=== PATIENT | female | born 1985 | race Caucasian/White ===

== ENCOUNTER 2016-11-12 14:43 | Emergency (ER) | payer OTHER ==
[~2016-11-12] VITALS: Ht 162.6 cm; Wt 81.6 kg
[2016-11-12 17:04] VITALS: BP 113/71
== END 2016-11-12 17:52 | disposition home or self-care (01) ==
LOC: ED 14:43
DX: S70.12XA Contusion of left thigh, initial encounter (principal); M54.9 Dorsalgia, unspecified; E66.9 Obesity, unspecified; M79.7 Fibromyalgia; M19.90 Unspecified osteoarthritis, unspecified site; Z79.1 Long term (current) use of non-steroidal anti-inflammatories (NSAID); Z79.899 Other long term (current) drug therapy; W01.10XA Fall on same level from slipping, tripping and stumbling with subsequent striking against unspecified object, initial encounter; Y93.89 Activity, other specified; Y92.89 Other specified places as the place of occurrence of the external cause; Y99.8 Other external cause status
CPT/HCPCS: J2270; Q0162

== ENCOUNTER 2018-12-05 08:49 | Emergency (ER) | payer OTHER ==
[~2018-12-05] VITALS: Ht 162.6 cm; Wt 88.0 kg
[2018-12-05 08:52] VITALS: Ht 162.6 cm; Wt 88.0 kg
[2018-12-05 10:05] VITALS: BP 115/68
== END 2018-12-05 10:52 | disposition home or self-care (01) ==
LOC: ED 08:49
DX: O20.9 Hemorrhage in early pregnancy, unspecified (principal); Z3A.01 Less than 8 weeks gestation of pregnancy
CPT/HCPCS: 36415

== ENCOUNTER 2018-12-07 13:47 | Emergency (ER) | payer OTHER ==
[~2018-12-07] VITALS: Ht 162.6 cm; Wt 88.0 kg
[2018-12-07 14:05] VITALS: Ht 162.6 cm; Wt 88.0 kg
[2018-12-07 15:53] VITALS: BP 125/62
== END 2018-12-07 15:53 | disposition home or self-care (01) ==
LOC: ED 13:47
DX: O20.0 Threatened abortion (principal)
CPT/HCPCS: 36415

== ENCOUNTER 2019-01-03 16:32 | Emergency (ER) | payer OTHER ==
[~2019-01-03] VITALS: Ht 162.6 cm; Wt 87.5 kg
[2019-01-03 16:36] VITALS: Ht 162.6 cm; Wt 87.5 kg
[2019-01-03 17:19] LABS: BASOPHIL % 0.6 % (0-2); PLATELET COUNT 364 x10^3mcL (130-400)
[2019-01-03 17:33] LABS: UA SPECIFIC GRAVITY 1.025 (1.005-1.035); microscopic required? YES; urine erythrocyte 3+ (NEGATIVE)
[2019-01-03 17:55] LABS: RED CELL DISTRIBUTION WIDTH 24.8 % (11.5-14.5)
[2019-01-03 18:06] LABS: rbc morphology (normal/abnorm) ABNORMAL (NORMAL)
[2019-01-03 18:10] LABS: CALCIUM 8.3 mg/dL (8.5-10.1); CARBON DIOXIDE 24.1 mmol/L (21-32); CHLORIDE SERUM 106 mmol/L (98-107); CREATININE SERUM 0.6 mg/dL (0.6-1.0); GFR1 > 60 mL/min; GLUCOSE SERUM 123 mg/dL (74-106); POTASSIUM SERUM 3.3 mmol/L (3.5-5.1); SODIUM SERUM 143 mmol/L (136-145)
[2019-01-03 18:15] LABS: ALBUMIN 3.9 g/dL (3.4-5.0); ALKALINE PHOSPHATASE 74 U/L (46-116); ALT/SGPT 35 U/L (14-59); AST/SGOT 18 U/L (15-37); BILIRUBIN TOTAL 0.26 mg/dL (0.20-1.00); TOTAL PROTEIN, SERUM 7.8 g/dL (6.4-8.2)
[2019-01-03 20:12] VITALS: BP 106/57
== END 2019-01-03 20:12 | disposition home or self-care (01) ==
LOC: ED 16:32
PROVIDERS: Student in an Organized Health Care Education/Training Program
DX: O00.90 Unspecified ectopic pregnancy without intrauterine pregnancy (principal); O26.851 Spotting complicating pregnancy, first trimester; Z3A.01 Less than 8 weeks gestation of pregnancy
CPT/HCPCS: 36415; J9260; Q0162